=== PATIENT | female | born 1945 | race Caucasian/White ===

== ENCOUNTER → 2018-07-23 | Outpatient (CLI) | payer MEDICARE ==
[~2018-07-23] MED LIST: CALGLU500; ENAL20; ESOM20; FEXO180; GLUC500; METF500; MULVITA; SERT50; UBID100
== END | disposition home or self-care (01) ==
LOC: PLD 13:17 → LAB SHORT 13:17
DX: D22.72 Melanocytic nevi of left lower limb, including hip (principal); D22.61 Melanocytic nevi of right upper limb, including shoulder; D03.62 Melanoma in situ of left upper limb, including shoulder
CPT/HCPCS: 88305

== ENCOUNTER → 2018-11-27 | Outpatient (CLI) | payer MEDICARE ==
[2018-11-28 15:06] LABS: HPV 16 Negative (Negative); HPV 18 Negative (Negative); HPV OTHER HR TYPES Negative (Negative)
== END | disposition home or self-care (01) ==
LOC: LAB 12:50 → LAB SHORT 12:50
PROVIDERS: Nurse Practitioner Women's Health
DX: Z12.4 Encounter for screening for malignant neoplasm of cervix (principal)
CPT/HCPCS: 87624; G0123

== ENCOUNTER 2019-03-24 08:26 | Day surgery (SDC) | payer MEDICARE ==
[~2019-03-24] VITALS: Ht 157.5 cm; Wt 80.9 kg
[~2019-03-24 08:26] MED LIST changes: +ALLEGRA ALLERG180 MG PO; +BETA.05TO TOP; +CALCITRATE200 MG PO; +COQ1050 MG PO; +ERGO400 PO; +Enalapril Malea20 MG PO; +MELO7.5 PO; +METF500 PO; +OMEPRAZOLE20 MG PO; +SERT100 PO; +SIMV40 PO; +THERA1 EACH PO; +TRAM50 PO; +VITAMIN B122500 MC1 PO; +Vitamin D2000 UNIT PO
--- NOTE | 2019-03-24 09:51 | NUR ---
PT INTO SDS VIA W/C. ABLE TO STAND FOR WEIGHT AND AMBULATE TO BED. History, Chart, Medications and Allergies reviewed before start of procedure.Patient confirms NPO status and agrees with scheduled surgery. Lungs clear T/O to Auscultation. Patient reports completing Chlorhexadine shower X2 prior to admission to hospital.Surgical site prepped with 2% Chlorhexidine cloth wipe.
--- NOTE | 2019-03-24 16:25 | NUR ---
PT TO FLOOR FROM PACU VSS. PAIN 6/10 UPON ARRIVAL. MEDICATED PER ORDERS FOR PAIN. NOW REPORTS COMFORTABLE, RATING 4/10. TOLERATING PO INTAKE. TXA INFUSING PER ORDERS. CALL LIGHT IN REACH.
--- NOTE | 2019-03-24 17:10 | NUR ---
SUMMARY NO ACUTE CHANGES SINCE ARRIVING TO UNIT FROM PACU. PAIN WELL CONTROLLED PER EMAR. TOLERATING PO. POLAR PACK AND SCDS IN PLACE. REC'D TXA PER ORDERS. CALL LIGHT IN REACH. SPOUSE AT BEDSIDE.
--- NOTE | 2019-03-24 17:55 | NUR ---
LATE ENTRY . AT 1435 MARBELLA RN ASSUMED CARE OF PT. SHE IS A/O PPP MOVES TOES AND FEET
[2019-03-25 04:13] LABS: BASOPHILS ABSOLUTE AUTO 0.02 K/mm3 (0.00-0.23); BASOPHILS PERCENT AUTO 0 % (0-2); EOSINOPHILS PERCENT AUTO 0 % (0-6); Hemoglobin 9.9 g/dL (11.5-16.0); IMMATURE GRAN ABSOLUTE AUTO 0.09 K/mm3 (0.00-0.10); IMMATURE GRAN PERCENT AUTO 1 % (0-1); LYMPHOCYTES ABSOLUTE AUTO 1.43 K/mm3 (0.84-5.20); LYMPHOCYTES PERCENT AUTO 8 % (21-46); MONOCYTES ABSOLUTE AUTO 1.17 K/mm3 (0.16-1.47); MONOCYTES PERCENT AUTO 6 % (4-13); Mean Platelet Volume 10.1 fL (9.1-12.4); NEUTROPHILS ABSOLUTE AUTO 15.52 K/mm3 (1.96-9.15); NEUTROPHILS PERCENT AUTO 85 % (41-73); Platelet Count 314 K/mm3 (150-400); White Blood Cell Count 18.23 K/mm3 (4.00-11.30)
[2019-03-25 04:22] LABS: Hematocrit 28.9 % (33.0-51.0); Mean Corpuscular HGB 34.4 pg (26.0-34.0); Mean Corpuscular HGB Conc 34.3 g/dL (31.5-36.5); Mean Corpuscular Volume 100 fL (80-100); Red Blood Cell Count 2.88 M/mm3 (3.80-5.20)
[2019-03-25 04:27] LABS: Prothrombin Time Results 10.6 Sec (9.7-11.5)
[2019-03-25 04:29] LABS: Anion Gap 7 mmol/L (6-16); Blood Urea Nitrogen 22 mg/dL (8-24); Bun/Creatinine Ratio 23.5 (12.0-20.0); CO2, Blood 28 mmol/L (21-32); Calcium, Blood 8.3 mg/dL (8.5-10.1); Chloride, Blood 103 mmol/L (98-108); Creatinine, Blood 0.94 mg/dL (0.40-1.00); Glomerular Filtration Rate >60 (60-); Glucose, Blood 142 mg/dL (70-99); Potassium, Blood 4.6 mmol/L (3.5-5.5); Sodium, Blood 138 mmol/L (136-145)
--- NOTE | 2019-03-25 06:04 | NUR ---
SHIFT SUMMARY LYING IN SEMI FOWLERS WITH EYES CLOSED. NO FURTHER CHANGES SINCE START OF SHIFT. DENIES PAIN, DISCOMFORT, OR FURTHER NEEDS AT THIS TIME. WILL GIVE HAND OFF TO ONCOMING SHIFT USING SBAR.
--- NOTE | 2019-03-25 07:33 | NUR ---
PT IV INFILTRATED, SMALL INFILTRATE WHEN IV FLUSHED THIS AM. DISCUSSED NEW IV. PT REQ TO WAIT AND SEE IF NEEDING IT. DISCUSSED PAIN MGMT. PT DROWSY BUT AWAKENS EASILY. "I'M TIRED THAT'S WHY MY EYES KEEP SHUTTING". PT RESP E/U.
--- NOTE | 2019-03-25 08:22 | NUR ---
PT REPORTED SLIGHTLY DIZZY. REPORTS "COULD BE FROM PAIN MEDICATION", DISCUSSED CBG. PT REPORTS WOULD LIKE CBG CHECKED TO MAKE SURE. SEE CBG, WNL. PT HAVING BREAKFEAST.
--- NOTE | 2019-03-25 08:50 | NUR ---
THERAPY WORKING WITH PT.
--- NOTE | 2019-03-25 09:07 | NUR ---
THERAPY CONT TO BE IN ROOM. FAMILY PRESENT.
[2019-03-25] MEDS ORDERED: OXYC5 PO (17:43)
[2019-03-25] MEDS ORDERED: WARF4 (17:43)
--- NOTE | 2019-03-25 18:08 | NUR ---
DISCHARGE: PT AND FAMILY REPORTS UNDERSTANDING OF DISCHARGE INSTRUCTIONS. PT EATING AND DRINKING WELL. PT PASSING GAS. PT VOIDING. PT REPORTS PAIN WELL CONTROLLED ON PO PAIN MEDICATION. PT/FAMILY REPORTS UNDERSTANDING OF DRESSING CHANGES AND ICE MACHINE. PT IV OUT EARLIER THIS AM. PT CLEARED THERAPY TO GO HOME EARLIER TODAY. PT OUT BY W/C. PT SENT WITH DRESSING SUPPLIES, ICE MACHINE, AND OTHER BELONGINGS.
--- NOTE | 2019-03-26 17:14 | NUR ---
03/26/19 1714 Papst,Hemal D ITEMS CORRECTED
== END 2019-03-25 18:18 | disposition home or self-care (01) ==
LOC: ORSCMMR 08:26 → ORD 10:45 → SURS 15:26 → ORSCMMR 03-25 18:18
PROVIDERS: Orthopaedic Surgery
PROC: 0SRD0J9 Replacement of Left Knee Joint with Synthetic Substitute, Cemented, Open Approach (ICD-10-PCS; principal; 2019-03-24 10:45)
DX: M17.12 Unilateral primary osteoarthritis, left knee (principal); I10 Essential (primary) hypertension; E11.9 Type 2 diabetes mellitus without complications; K21.9 Gastro-esophageal reflux disease without esophagitis; E66.9 Obesity, unspecified; Z68.32 Body mass index [BMI] 32.0-32.9, adult; Z79.899 Other long term (current) drug therapy
CPT/HCPCS: 36415; 73560-LT; 80048; 82947; 83735; 85025; 85610; 86850; 86900; 86901; 88300; 97110; 97116; 97162; 97530; C1713; C1776; J0171; J0690; J0735; J1100; J1170; J1885; J2250; J2405; J2704; J2765; J2795; J3010; J7120

== ENCOUNTER → 2019-04-10 | Outpatient (CLI) | payer MEDICARE ==
[~2019-04-10] MED LIST changes: +OXYC5 PO; +WARF4
== END ==
LOC: LAB SHORT 17:42 → LAB 17:42
DX: R39.15 Urgency of urination (principal)
CPT/HCPCS: 87086

== ENCOUNTER → 2019-07-13 | Outpatient (CLI) | payer MEDICARE ==
[2019-07-13 17:59] LABS: Source, Urine Clean Catch
[2019-07-13 18:19] LABS: Appearance, Urine Clear (Clear); Bilirubin, Urine Neg (Neg); Blood, Urine 1+ (Neg); Color, Urine Yellow (P-Yellow); Glucose Qualitative, Urine Neg (Neg); Ketones, Urine Neg (Neg); Leukocyte Esterase, Urine 3+ (Neg); Nitrite, Urine Pos (Neg); Protein, Urine Neg (Neg); Urobilinogen, Urine NORM (Normal)
[2019-07-13 18:44] LABS: Bacteria Few /hpf; Squamous Epithelial Cells Few /hpf (Few)
== END | disposition home or self-care (01) ==
LOC: LAB SHORT 10:28 → LAB 10:28
DX: R35.0 Frequency of micturition (principal)
CPT/HCPCS: 81001; 87077; 87086; 87186

== ENCOUNTER 2019-09-15 15:30 | Inpatient (IN) | payer MEDICARE ==
[~2019-09-15] VITALS: Ht 154.9 cm; Wt 79.6 kg
--- NOTE | 2019-09-16 06:59 | NUR ---
History, Chart, Medications and Allergies reviewed before start of procedure. Lungs clear T/O to Auscultation. Patient confirms NPO status and agrees with scheduled surgery. Pre-Op teaching done. Pt verbalizes understanding. Patient reports completing Chlorhexadine shower X2 prior to admission to hospital.
--- NOTE | 2019-09-16 16:21 | NUR ---
ASSUMED CARE OF PATIENT. PT STATES SHE WOULD LIKE TO GET A NAP BEFORE DINNER, DENIES ANY NEEDS AT THIS TIME
--- NOTE | 2019-09-16 16:36 | NUR ---
SHIFT SUMMARY PT HAS DONE VERY WELL POST OP. TOLERATING DIET, AMBULATED W/ THERAPY, VOIDED, PAIN AT A TOLERABLE LEVEL. NO DRAINAGE AT SURG SITES.
--- NOTE | 2019-09-16 18:13 | NUR ---
SUMMARY PATIENT REPORTS CURRENT SURGICAL SITE PAIN 1-2. DRESSINGS DRY AND INTACT. PATIENTS LEFT ARM ELEVATED ON PILOWS AND WRAPPED IN WARM BLANKET AFTER IV INFILTRATION- PATIENT STATES ARM AND HAND FEELS SLIGHTLY TIGHT BUT ONLY MILD PAIN. PT EDECATED TO KEEP ELEVATED.
--- NOTE | 2019-09-17 00:53 | NUR ---
ASSUMED CARE OF PT. PT APPEARS SLEEPING AFTER TYLENOL AND TORADOL
[2019-09-17 04:43] LABS: BASOPHILS ABSOLUTE AUTO 0.01 K/mm3 (0.00-0.23); BASOPHILS PERCENT AUTO 0 % (0-2); EOSINOPHILS ABSOLUTE AUTO 0.02 K/mm3 (0.00-0.68); EOSINOPHILS PERCENT AUTO 0 % (0-6); Hematocrit 30.9 % (33.0-51.0); Hemoglobin 9.6 g/dL (11.5-16.0); IMMATURE GRAN ABSOLUTE AUTO 0.04 K/mm3 (0.00-0.10); IMMATURE GRAN PERCENT AUTO 0 % (0-1); LYMPHOCYTES ABSOLUTE AUTO 1.28 K/mm3 (0.84-5.20); LYMPHOCYTES PERCENT AUTO 12 % (21-46); MONOCYTES ABSOLUTE AUTO 0.96 K/mm3 (0.16-1.47); MONOCYTES PERCENT AUTO 9 % (4-13); Mean Corpuscular HGB Conc 31.1 g/dL (31.5-36.5); NEUTROPHILS ABSOLUTE AUTO 8.37 K/mm3 (1.96-9.15); NEUTROPHILS PERCENT AUTO 78 % (41-73); Platelet Count 295 K/mm3 (150-400); RDW Coefficient Variation 14.4 % (11.7-14.2); RDW Standard Deviation 48.9 fL (35.1-46.3); White Blood Cell Count 10.68 K/mm3 (4.00-11.30)
[2019-09-17 04:54] LABS: Mean Corpuscular Volume 97 fL (80-100)
[2019-09-17 05:00] LABS: Anion Gap 5 mmol/L (6-16); Blood Urea Nitrogen 15 mg/dL (8-24); Bun/Creatinine Ratio 16.3 (12.0-20.0); CO2, Blood 28 mmol/L (21-32); Calcium, Blood 8.4 mg/dL (8.5-10.1); Chloride, Blood 104 mmol/L (98-108); Creatinine, Blood 0.92 mg/dL (0.40-1.00); Glomerular Filtration Rate >60 (60-); Glucose, Blood 113 mg/dL (70-99); Magnesium, Blood 1.7 mg/dL (1.6-2.4); Potassium, Blood 4.4 mmol/L (3.5-5.5); Sodium, Blood 137 mmol/L (136-145)
[2019-09-17] MEDS ORDERED: ROXICODONE5 MG PO (08:51)
[2019-09-17] MEDS ORDERED: Aspir 8181 MG PO (08:52)
[2019-09-17] MEDS ORDERED: PROM25 PO (08:52)
--- NOTE | 2019-09-17 10:16 | NUR ---
Patient is sitting on a chair and alert. Spouse, Carson is present. They tell me about their kameron, their family and their [employer] support systems. Patient talks about the recovery ahead and states that she is up for the challenge. I listen empathically and provide prayer. Patient and Carson voice appreciation for my visit.
--- NOTE | 2019-09-17 11:59 | NUR ---
OR TO SURGICAL FLOOR PT ARRIVED TO UNIT FROM OR AT 1150 TODAY. IS A&OX4 WITH VSS; SPO2 AT 98% ON 2L NC. NO VAGINAL BLEEDING NOTED AT THIS TIME. EPSTEIN CATH IS PATENT AND DRAINING CLEAR/YELLOW URINE. TOLERATING SIPS OF WATER AND CRACKERS. RATES PAIN AT 8/10 WITH 1/10 BEING TOLERABLE. WILL MEDICATE PER ORDERS. CURRENTLY ALERT WHILE RESTING IN BED WITH PAS ON AND HAS CALL LIGHT WITHIN REACH.
--- NOTE | 2019-09-17 13:04 | NUR ---
DISCHARGE PACKET PRINTED AND EDUCATION GIVEN. PT AND PT REPORTS ALREADY FILLED SCRIPTS. PT LEFT UNIT VIA WHEELCHIAR WITH THIS RN
== END 2019-09-17 12:57 | disposition home or self-care (01) | DRG 470 ==
LOC: SURS 09-16 05:57 → PRE IP 09-16 07:30 → SURS 09-16 10:48
PROVIDERS: ADMIT Orthopaedic Surgery
PROC: 0SR904A Replacement of Right Hip Joint with Ceramic on Polyethylene Synthetic Substitute, Uncemented, Open Approach (ICD-10-PCS; principal; 2019-09-16 07:30)
DX: M16.11 Unilateral primary osteoarthritis, right hip (principal); E11.9 Type 2 diabetes mellitus without complications; I10 Essential (primary) hypertension; E78.00 Pure hypercholesterolemia, unspecified; K21.9 Gastro-esophageal reflux disease without esophagitis
CPT/HCPCS: 36415; 72170; 80048; 82947; 83735; 85025; 88300; 97110; 97116; 97162; 97166; 97530; 97535; C1713; C1776; J0171; J0690; J0735; J1885; J2250; J2704; J2795; J3010; J3370; J7120

== ENCOUNTER → 2020-12-27 | Outpatient (CLI) | payer MEDICARE ==
[~2020-12-27] MED LIST changes: +Aspir 8181 MG PO; +PROM25 PO; +ROXICODONE5 MG PO
== END | disposition home or self-care (01) ==
LOC: LAB EV 12:10 → LAB SHORT 12:10
DX: R30.9 Painful micturition, unspecified (principal)
CPT/HCPCS: 87077; 87086; 87186

== ENCOUNTER → 2021-07-21 | Outpatient (CLI) | payer MEDICARE | END | disposition home or self-care (01) | LOC: LAB SHORT 17:30 → LAB 17:30 | DX: R30.0 Dysuria (principal) | CPT/HCPCS: 87086 ==

== ENCOUNTER → 2023-09-01 | Outpatient (CLI) | payer MEDICARE ==
[2023-09-01 15:19] LABS: Albumin, Blood 3.8 g/dL (3.4-5.0); Albumin/Globulin Ratio 1.1 (0.8-1.8); Bilirubin, Total 0.3 mg/dL (0.1-1.0); Bun/Creatinine Ratio 14.7 (12.0-20.0); Calcium, Blood 9.2 mg/dL (8.5-10.1); Creatinine, Blood 0.95 mg/dL (0.40-1.00); Globulin, Blood 3.4 g/dL (2.2-4.0); Potassium, Blood 4.1 mmol/L (3.5-5.5); Total Protein, Blood 7.2 g/dL (6.4-8.2)
[2023-09-01 19:09] LABS: BASOPHILS ABSOLUTE AUTO 0.03 K/mm3 (0.00-0.23); BASOPHILS PERCENT AUTO 0 % (0-2); EOSINOPHILS ABSOLUTE AUTO 0.09 K/mm3 (0.00-0.68); EOSINOPHILS PERCENT AUTO 1 % (0-6); IMMATURE GRAN ABSOLUTE AUTO 0.03 K/mm3 (0.00-0.10); IMMATURE GRAN PERCENT AUTO 0 % (0-1); LYMPHOCYTES PERCENT AUTO 31 % (21-46); MONOCYTES ABSOLUTE AUTO 0.62 K/mm3 (0.16-1.47); MONOCYTES PERCENT AUTO 8 % (4-13); NEUTROPHILS ABSOLUTE AUTO 4.74 K/mm3 (1.96-9.15); NEUTROPHILS PERCENT AUTO 59 % (41-73); Platelet Count 329 K/mm3 (150-400); White Blood Cell Count 8.01 K/mm3 (4.00-11.30)
== END ==
LOC: LAB 12:45 → LAB SHORT 12:45
PROVIDERS: Physician Assistant
DX: N39.0 Urinary tract infection, site not specified (principal); R53.83 Other fatigue
CPT/HCPCS: 80053; 85025

== ENCOUNTER → 2024-05-25 | Outpatient (CLI) | payer MEDICARE | LOC: LAB SHORT 15:38 → LAB 15:38 | DX: N39.0 Urinary tract infection, site not specified (principal); R31.9 Hematuria, unspecified | CPT/HCPCS: 87077; 87086; 87186 ==

== ENCOUNTER → 2025-01-31 | Outpatient (CLI) | payer MEDICARE | LOC: LAB 17:41 → LAB SHORT 17:41 | DX: Z01.89 Encounter for other specified special examinations (principal); R53.83 Other fatigue | CPT/HCPCS: 87086 ==

== ENCOUNTER → 2025-08-10 | Outpatient (CLI) | payer MEDICARE | LOC: LAB SHORT 16:22 → LAB 16:22 | DX: N39.0 Urinary tract infection, site not specified (principal) | CPT/HCPCS: 87077; 87086; 87185; 87186 ==